=== PATIENT | male | born 2005 | race Hispanic/Latino ===

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

== ENCOUNTER 2023-02-04 06:50 | Emergency (ER) | payer BC ==
[2023-02-04 07:55] LABS: SARS-CoV-2 NAA Rapid Test Not Detected (NotDetected)
[2023-02-04] MEDS ORDERED: Ketorolac Tromethamine 30 MG/ML VIAL ONE (08:07)
== END 2023-02-04 08:30 | disposition home or self-care (01) ==
LOC: ERS 06:50
DX: B34.9 Viral infection, unspecified (principal); R07.89 Other chest pain; Z20.822 Contact with and (suspected) exposure to COVID-19
CPT/HCPCS: 71045; 87081; 87430; 96372; J1885

== ENCOUNTER 2023-04-29 23:44 | Emergency (ER) | payer BC ==
[2023-04-30] MEDS ORDERED: Ketorolac Tromethamine 30 MG/ML VIAL ONE (00:22)
[2023-04-30] MEDS ORDERED: guaiFENesin ER 600 MG TAB PO SCH (00:45)
[2023-04-30 01:26] LABS: SARS-CoV-2 NAA Rapid Test Not Detected (NotDetected)
== END 2023-04-30 02:14 | disposition home or self-care (01) ==
LOC: ERS 23:44
DX: J18.9 Pneumonia, unspecified organism (principal); I10 Essential (primary) hypertension; E11.9 Type 2 diabetes mellitus without complications; Z20.822 Contact with and (suspected) exposure to COVID-19
CPT/HCPCS: 71046; 96372; J1885